=== PATIENT | male | born 1935 | race Caucasian/White ===

== ENCOUNTER → 2018-09-12 11:18 | Outpatient (CLI) | payer OTHER, SELFPAY ==
--- NOTE | 2018-09-12 | DI.MRI.S_ITS ---
PROCEDURE: MR KNEE RT WO CON INDICATIONS: Displaced bicondylar fracture of right tibia, subs TECHNIQUE: Noncontrast sagittal PD fast spin echo and T2 fast spin echo with fat saturation, sagittal 3-D FLASH with fat saturation; coronal T1 spin echo and PD fast spin echo with fat saturation, and axial PD fast spin echo with fat saturation through the knee. COMPARISON: None. FINDINGS: Image quality: Excellent. Menisci: The body and posterior horn of the medial meniscus are truncated, presumably related to prior meniscectomy. There is mild intrasubstance degeneration involving the body of the lateral meniscus. The meniscal root ligaments appear intact. Cruciate ligaments: The anterior and posterior cruciate ligaments appear intact. Medial structures: The medial collateral ligament appears intact. The posterior oblique ligament, semimembranosus tendon insertions, oblique popliteal ligament, and meniscocapsular junction appear intact. Visualized portions of the pes anserinus tendons appear normal. No abnormal bursal fluid. Lateral structures: The lateral collateral ligament, long and short heads of the biceps femoris tendon appear intact. The popliteus tendon appears normal; the popliteofibular ligament appears intact. The posterosuperior and anteroinferior popliteomeniscal fascicles appear intact. The arcuate and fabellofibular ligaments appear intact, on either side of the lateral inferior geniculate artery. Iliotibial band appears normal. Anterior structures: The quadriceps and patellar tendons appear intact. Patellar alignment is normal. No femoral trochlear dysplasia or ventral trochlear prominence. No edema in the infrapatellar fat pad. Bones and cartilage: No bone marrow contusions or fractures. There is severe cartilage loss of the medial compartment. Mild cartilage loss and signal degeneration of the lateral femorotibial compartment and patellar femoral compartment. There is edema and subchondral cyst formation in the weightbearing medial tibial plateau. Joint space: There is a small knee joint effusion. A tiny Harris's cyst. Normal appearing synovial plicae are incidentally noted. IMPRESSION: 1. Truncation of the body and posterior horn the medial meniscus, presumably related to prior meniscectomy. 2. Mild intrasubstance degeneration of the lateral meniscus. 3. 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 There is marrow edema in subchondral cyst formation in the weightbearing medial tibial plateau. Dictated by: Jewels Grey M.D. on 09/12/2018 at 12:17 Approved by: Jewels Grey M.D. on 09/12/2018 at 18:07
== END ==
PROVIDERS: Visit Provider Specialist
DX: M23.361 Other meniscus derangements, other lateral meniscus, right knee (principal); M25.461 Effusion, right knee
CPT/HCPCS: 73721